=== PATIENT | female | born 1955 | race Caucasian/White ===

== ENCOUNTER 2019-05-05 05:53 | Inpatient (IN) | payer MEDICAID ==
[~2019-05-05] VITALS: Ht 165.1 cm; Wt 74.8 kg
[2019-05-05] VITALS (45 sets, daily range): BP systolic 94–164; BP diastolic 20–104
[2019-05-05] MEDS ORDERED: THROMBIN (BOVINE) 5000 UNITS/VIAL TOP ONE ×2 (08:21→08:22)
[2019-05-05] MEDS ORDERED: BACITRACIN 50,000 UNITS/VIAL ONE (08:22)
[2019-05-05] MEDS ORDERED: LIDOCAINE HCL/EPINEPHRINE 1%-EPI 1:100,000 20 ML VIAL ONE (08:22)
[2019-05-05] MEDS ORDERED: LACTATED RINGERS 500 ML IV SCH (09:30)
[2019-05-05] MEDS ORDERED: NICARDIPINE 100 MG in SODIUM CHLORIDE 0.9% 60 ML IV PRN ×2 (10:00→10:45)
[2019-05-05] MEDS ORDERED: ONDANSETRON HCL 4MG/2ML INJ IV PRN ×2 (10:45→12:15)
[2019-05-05] MEDS ORDERED: FENTANYL CITRATE/PF 50MCG/ML 2ML VIAL ONE (11:04)
[2019-05-05] MEDS ORDERED: ROCURONIUM BROMIDE 10MG/ML VIAL 5ML IV ONE ×2 (11:05→11:33)
[2019-05-05] MEDS ORDERED: PROPOFOL 200MG/20ML VIAL IV ONE (11:05)
[2019-05-05] MEDS ORDERED: NEOSTIGMINE METHYLSULFATE 1MG/ML 10 ML VIAL ONE (11:05)
[2019-05-05] MEDS ORDERED: MIDAZOLAM HCL 2 MG/2 ML VIAL ONE (11:05)
[2019-05-05] MEDS ORDERED: ONDANSETRON HCL 4MG/2ML INJ ONE (11:06)
[2019-05-05] MEDS ORDERED: GLYCOPYRROLATE 0.2 MG/ML 2ML VIAL ONE ×2 (11:06→12:34)
[2019-05-05] MEDS ORDERED: DEXAMETHASONE 4MG/ML 1ML VIAL ONE (11:06)
[2019-05-05] MEDS ORDERED: HYDROMORPHONE HCL/PF 2MG/ML (OR) ONE (11:35)
[2019-05-05] MEDS ORDERED: HYDROMORPHONE HCL/PF 2MG/ML CPJ IV PRN (12:15)
[2019-05-05] MEDS ORDERED: LABETALOL 5MG/ML SYR 20 MG/4 ML SYRINGE IV PRN (12:15)
[2019-05-05] MEDS ORDERED: MEPERIDINE HCL/PF 25MG/ML CPJ IV PRN (12:15)
[2019-05-05] MEDS: DEXT 5%/LACTATED RINGERS 1,000 ML IV SCH ×2 (13:04→23:10)
[2019-05-05] MEDS ORDERED: HYDROMORPHONE PCA 10MG/50ML IV PRN (13:15)
[2019-05-05] MEDS ORDERED: NALOXONE INJ IV PRN (13:15)
[2019-05-05] MEDS ORDERED: ONDANSETRON INJ IV PRN (13:15)
[2019-05-05] MEDS ORDERED: DIPHENHYDRAMINE INJ IV PRN (13:15)
[2019-05-05 13:52] LABS: BG CARBOXYHEMOGLOBIN 0.7 % (0.5-1.5); BG DEOXYHEMOGLOBIN 6.1 % (0.0-5.0); BG FRACTION INSPIRED OXYGEN 100; BG HCO3 ACT 24.3 mmol/L (22.0-26.0); BG OXYGEN SATURATION 93.9 % (92.0-98.5); BG OXYHEMOGLOBIN 93.2 % (94.0-97.0); BG PCO2 47.4 mmHg (35.0-45.0); BG PH 7.327 (7.350-7.450); BG PO2 77.5 mmHg (75.0-100.0); BG SAMPLE SITE RIGHT BRACHIAL; BG TOTAL HEMOGLOBIN 12.8 g/dL (12.0-18.0); BG VENT MODE MASK - NRB
[2019-05-05] MEDS ORDERED: CEFAZOLIN SODIUM 1000MG/VIAL IV SCH (14:00)
[2019-05-05] MEDS ORDERED: CEFAZOLIN 1000MG PREMIX 50 ML IV SCH (14:00)
[2019-05-05] MEDS ORDERED: ALBUTEROL (0.083%) 2.5MG/3ML NEB HHN SCH (14:30)
[2019-05-05] MEDS: DEXAMETHASONE 4MG/ML 1ML VIAL IV SCH ×3 (14:42→23:10)
[2019-05-05] MEDS: ALBUTEROL (0.083%) 2.5MG/3ML NEB HHN SCH ×3 (14:44→20:10)
[2019-05-05 17:44] LABS: BG BASE EXCESS -0.6 mmol/L (-2.0-2.0); BG CARBOXYHEMOGLOBIN 0.3 % (0.5-1.5); BG DEOXYHEMOGLOBIN 2.7 % (0.0-5.0); BG FRACTION INSPIRED OXYGEN 100; BG HCO3 ACT 25.7 mmol/L (22.0-26.0); BG OXYGEN SATURATION 97.3 % (92.0-98.5); BG PCO2 48.9 mmHg (35.0-45.0); BG PH 7.338 (7.350-7.450); BG PO2 114.2 mmHg (75.0-100.0); BG SAMPLE SITE RIGHT BRACHIAL; BG VENT MODE MASK - NRB
[2019-05-05] MEDS: CEFAZOLIN 1000MG PREMIX 50 ML IV SCH (18:37)
[2019-05-05] MEDS: MORPHINE SULFATE 4 MG/ML CPJ (NOT FOR IM USE) IV PRN (22:45)
[2019-05-06] VITALS (63 sets, daily range): BP systolic 104–142; BP diastolic 47–121
[2019-05-06] MEDS: ALBUTEROL (0.083%) 2.5MG/3ML NEB HHN SCH ×6 (00:33→20:21)
[2019-05-06] MEDS: CEFAZOLIN 1000MG PREMIX 50 ML IV SCH ×2 (02:24→11:48)
[2019-05-06] MEDS: MORPHINE SULFATE 4 MG/ML CPJ (NOT FOR IM USE) IV PRN (03:51)
[2019-05-06] MEDS: DEXAMETHASONE 4MG/ML 1ML VIAL IV SCH ×2 (05:35→11:48)
[2019-05-06 06:21] LABS: CHLORIDE 109 mEq/L (98-107)
[2019-05-06 06:22] LABS: HEMATOCRIT. 35.1 % (36.0-48.0); HEMOGLOBIN. 11.8 g/dL (12.0-16.0); MEAN CORPUSCULAR HEMOGLOBIN 28.7 pg (28.0-32.0); MEAN CORPUSCULAR VOLUME 85.2 fL (81.0-99.0); MEAN PLATELET VOLUME 8.5 fl (7.4-10.4); PLATELET 214 x1000/uL (130-400); RED BLOOD CELL COUNT 4.12 mill/uL (4.2-5.4); RED CELL DISTRIBUTION WIDTH 13.8 % (11.6-14.6)
[2019-05-06 06:36] LABS: HDL CHOLESTEROL 30 mg/dL (40-59); LDL CHOLESTEROL 82 mg/dL (5-100)
[2019-05-06] MEDS: DEXT 5%/LACTATED RINGERS 1,000 ML IV SCH ×2 (07:00→17:00)
[2019-05-06 08:03] LABS: BG BASE EXCESS -0.8 mmol/L (-2.0-2.0); BG CARBOXYHEMOGLOBIN 0.8 % (0.5-1.5); BG DEOXYHEMOGLOBIN 4.9 % (0.0-5.0); BG FRACTION INSPIRED OXYGEN 100; BG HCO3 ACT 24.2 mmol/L (22.0-26.0); BG METHEMOGLOBIN 0.3 % (0.0-1.5); BG PCO2 41.4 mmHg (35.0-45.0); BG PH 7.385 (7.350-7.450); BG PO2 75.7 mmHg (75.0-100.0); BG SAMPLE SITE RIGHT BRACHIAL; BG TOTAL HEMOGLOBIN 12.2 g/dL (12.0-18.0); BG VENT MODE MASK - NRB
[2019-05-06 12:28] LABS: PLATELET ESTIMATE NORMAL
[2019-05-06] MEDS: HYDROCHLOROTHIAZIDE 25MG TABLET PO SCH (14:27)
[2019-05-06] MEDS: BENAZEPRIL 10MG TABLET PO SCH ×2 (14:27→20:53)
[2019-05-06] MEDS: ACETAMINOPHEN 650MG/20.3ML UDC PO PRN (19:40)
[2019-05-06] MEDS: MORPHINE SULFATE 2 MG/ML CPJ (NOT FOR IM USE) IV PRN (21:59)
[2019-05-07] VITALS (19 sets, daily range): BP systolic 108–157; BP diastolic 38–93
[2019-05-07] MEDS: ALBUTEROL (0.083%) 2.5MG/3ML NEB HHN SCH ×6 (00:36→16:51)
[2019-05-07] MEDS: DEXT 5%/LACTATED RINGERS 1,000 ML IV SCH ×2 (03:00→13:00)
[2019-05-07] MEDS: ACETAMINOPHEN 650MG/20.3ML UDC PO PRN ×3 (03:04→18:49)
[2019-05-07] MEDS: MORPHINE SULFATE 2 MG/ML CPJ (NOT FOR IM USE) IV PRN (05:13)
[2019-05-07 05:44] LABS: HEMATOCRIT. 32.3 % (36.0-48.0); LYMPHOCYTES % 11.4 % (20.0-50.0); MEAN CORPUSCULAR HEMOGLOBIN 28.9 pg (28.0-32.0); MEAN CORPUSCULAR VOLUME 84.9 fL (81.0-99.0); MEAN PLATELET VOLUME 8.4 fl (7.4-10.4); MONOCYTES % 5.6 % (2.0-8.0); PLATELET 192 x1000/uL (130-400); RED BLOOD CELL COUNT 3.81 mill/uL (4.2-5.4); RED CELL DISTRIBUTION WIDTH 13.8 % (11.6-14.6)
[2019-05-07 05:54] LABS: CHLORIDE 105 mEq/L (98-107)
[2019-05-07] MEDS: BENAZEPRIL 10MG TABLET PO SCH ×2 (08:44→21:38)
[2019-05-07] MEDS: HYDROCHLOROTHIAZIDE 25MG TABLET PO SCH (08:44)
[2019-05-07] MEDS: OXYCODONE HCL/ACETAMINOPHEN 5/325MG TABLET PO PRN ×2 (14:45→21:41)
[2019-05-07] MEDS: DOCUSATE SODIUM 100MG CAPSULE PO SCH (14:46)
[2019-05-08 04:00] VITALS: BP 132/65
[2019-05-08] MEDS: ACETAMINOPHEN 650MG/20.3ML UDC PO PRN (06:29)
[2019-05-08 07:46] LABS: CHLORIDE 109 mEq/L (98-107)
[2019-05-08 08:03] LABS: HEMATOCRIT. 33.7 % (36.0-48.0); HEMOGLOBIN. 11.5 g/dL (12.0-16.0); MEAN CORPUSCULAR VOLUME 85.1 fL (81.0-99.0); MEAN PLATELET VOLUME 8.3 fl (7.4-10.4); PLATELET 213 x1000/uL (130-400); RED BLOOD CELL COUNT 3.96 mill/uL (4.2-5.4); RED CELL DISTRIBUTION WIDTH 13.8 % (11.6-14.6)
[2019-05-08] MEDS: ALBUTEROL (0.083%) 2.5MG/3ML NEB HHN SCH ×2 (08:25→12:21)
[2019-05-08] MEDS: HYDROCHLOROTHIAZIDE 25MG TABLET PO SCH (09:09)
[2019-05-08] MEDS: BENAZEPRIL 10MG TABLET PO SCH (09:09)
[2019-05-08] MEDS: DOCUSATE SODIUM 100MG CAPSULE PO SCH (09:09)
[2019-05-08] MEDS: OXYCODONE HCL/ACETAMINOPHEN 5/325MG TABLET PO PRN ×2 (09:19→15:07)
[2019-05-08 09:48] LABS: BG BASE EXCESS 5.4 mmol/L (-2.0-2.0); BG CARBOXYHEMOGLOBIN 0.4 % (0.5-1.5); BG DEOXYHEMOGLOBIN 6.1 % (0.0-5.0); BG FRACTION INSPIRED OXYGEN 32; BG METHEMOGLOBIN 0.3 % (0.0-1.5); BG OXYGEN SATURATION 93.9 % (92.0-98.5); BG OXYHEMOGLOBIN 93.2 % (94.0-97.0); BG PCO2 38.6 mmHg (35.0-45.0); BG PH 7.493 (7.350-7.450); BG PO2 63.7 mmHg (75.0-100.0); BG SAMPLE SITE RIGHT RADIAL; BG TOTAL HEMOGLOBIN 11.2 g/dL (12.0-18.0); BG VENT MODE NASAL CANNULA
[2019-05-08] MEDS ORDERED: ACETAMINOPHEN 650MG/20.3ML UDC PO PRN (11:45)
[2019-05-08] MEDS ORDERED: IPRATROPIUM/ALBUTEROL 0.5-3(2.5)MG/3ML NEB HHN PRN (12:45)
[2019-05-08 13:21] LABS: PLATELET ESTIMATE NORMAL
[2019-05-08 15:07] VITALS: BP 116/74
== END 2019-05-08 17:08 | disposition home or self-care (01) | DRG 321 ==
LOC: OR 05:53 → MICUNO 05:54 → 6EST 05-07 15:36
PROVIDERS: ADMIT Neurological Surgery; ATTEND Neurological Surgery
PROC: 0RG20A0 Fusion of 2 or more Cervical Vertebral Joints with Interbody Fusion Device, Anterior Approach, Anterior Column, Open Approach (ICD-10-PCS; principal; 2019-05-05)
PROC: 00NW0ZZ Release Cervical Spinal Cord, Open Approach (ICD-10-PCS; 2019-05-05)
PROC: 0RG20K0 Fusion of 2 or more Cervical Vertebral Joints with Nonautologous Tissue Substitute, Anterior Approach, Anterior Column, Open Approach (ICD-10-PCS; 2019-05-05)
PROC: 0RB30ZZ Excision of Cervical Vertebral Disc, Open Approach (ICD-10-PCS; 2019-05-05)
PROC: 4A11X4G Monitoring of Peripheral Nervous Electrical Activity, Intraoperative, External Approach (ICD-10-PCS; 2019-05-05)
DX: M48.02 Spinal stenosis, cervical region (principal); G82.50 Quadriplegia, unspecified; J18.9 Pneumonia, unspecified organism; I11.9 Hypertensive heart disease without heart failure; J91.8 Pleural effusion in other conditions classified elsewhere; I10 Essential (primary) hypertension; M47.12 Other spondylosis with myelopathy, cervical region; D72.829 Elevated white blood cell count, unspecified; E78.5 Hyperlipidemia, unspecified; M47.22 Other spondylosis with radiculopathy, cervical region; F41.9 Anxiety disorder, unspecified; M62.50 Muscle wasting and atrophy, not elsewhere classified, unspecified site; G95.20 Unspecified cord compression; K21.9 Gastro-esophageal reflux disease without esophagitis; Z83.2 Family history of diseases of the blood and blood-forming organs and certain disorders involving the immune mechanism; Z83.3 Family history of diabetes mellitus; Z90.49 Acquired absence of other specified parts of digestive tract; Z82.49 Family history of ischemic heart disease and other diseases of the circulatory system; Z88.0 Allergy status to penicillin; Z88.2 Allergy status to sulfonamides; Z88.8 Allergy status to other drugs, medicaments and biological substances
CPT/HCPCS: 36415; 36600; 71045; 72040; 72141; 76000; 80048; 80053; 80061; 82375; 82805; 83036; 85025; 86850; 86900; 88304; 88311; 94640; 95925; 95926; 95928; 95929; 95940; 97116; 97162; 97166; C1713; J0690; J1100; J1170; J2250; J2270; J2405; J2704; J2710; J3010; J3490; J7121; J7611; L0172